=== PATIENT | male | born 1980 | race Caucasian/White ===

== ENCOUNTER → 2017-08-19 | Outpatient (CLI) | payer MEDICAID, SELFPAY | LOC: M OUTALCOH 14:30 | PROVIDERS: ATTEND Psychiatry & Neurology Psychiatry | DX: Z13.9 Encounter for screening, unspecified (principal); F10.20 Alcohol dependence, uncomplicated ==

== ENCOUNTER 2017-09-07 11:00 | Outpatient (RCR) | payer MEDICAID | END 2017-09-19 | LOC: M OUTALCOH 11:00 | DX: F10.20 Alcohol dependence, uncomplicated (principal); F17.200 Nicotine dependence, unspecified, uncomplicated ==

== ENCOUNTER 2017-09-22 14:21 | Outpatient (RCR) | payer SELFPAY | END 2017-10-20 | LOC: M OUTALCOH 14:21 | DX: F10.20 Alcohol dependence, uncomplicated (principal); F17.200 Nicotine dependence, unspecified, uncomplicated ==

== ENCOUNTER 2017-10-28 08:00 | Outpatient (RCR) | payer SELFPAY | END 2017-11-17 | LOC: M OUTALCOH 11-04 09:00 | DX: F10.20 Alcohol dependence, uncomplicated (principal); F17.200 Nicotine dependence, unspecified, uncomplicated ==

== ENCOUNTER → 2018-01-31 | Outpatient (CLI) | payer OTHER | LOC: M WUC 13:41 | DX: S96.001A Unspecified injury of muscle and tendon of long flexor muscle of toe at ankle and foot level, right foot, initial encounter (principal); X58.XXXA Exposure to other specified factors, initial encounter; Y92.89 Other specified places as the place of occurrence of the external cause | CPT/HCPCS: 73620 ==

== ENCOUNTER 2020-08-07 12:12 | Emergency (ER) | payer MEDICAID, SELFPAY ==
[~2020-08-07] VITALS: Ht 185.4 cm; Wt 70.5 kg
[2020-08-07 12:14] VITALS: BP 111/71
[2020-08-07] MEDS ORDERED: SERT-138 PO ×2 (12:27→12:42)
== END 2020-08-07 12:57 | disposition home or self-care (01) ==
LOC: M ED 12:12
DX: Z76.0 Encounter for issue of repeat prescription (principal); Z79.899 Other long term (current) drug therapy; Z88.0 Allergy status to penicillin; F17.210 Nicotine dependence, cigarettes, uncomplicated

== ENCOUNTER 2020-11-07 14:33 | Emergency (ER) | payer MEDICAID, OTHER ==
[~2020-11-07] VITALS: Ht 180.3 cm; Wt 62.4 kg
[2020-11-07 14:33] VITALS: BP 112/74
[~2020-11-07 14:33] MED LIST: SERT-138 PO
--- OUTSIDE RECORDS SUMMARY | 2020-11-07 14:39 | CCD ---
Author Author Ortega Longoria Organization Unknown Address [address] [address] Phone Care Team Providers Care Aviation Project Manager Name Role Phone Andrez Longoria PCP Allergies, Adverse Reactions, Alerts No Data in Section Problem List Concept Problem Description Status Start Date Created Date Resolv ed Date Snomed Code F41.9 Unspecified Anxiety Disorder Active 09/11/2020 F10.20 Alcohol Use Disorder, Severe Active 09/11/2020 F17.200 Tobacco Use Disorder, Severe Active 09/11/2020 Medications No Data in Section Social History Social History Element Description Concept Effective Date Smoking Status Unknown if ever smoked [id number] Immunizations No Data in Section Vital Signs No Data in Section Procedures Date Concept Id Description Targeted Site Concept Targeted Site Concept Type 09/11/2020 65164 Extended Individual Psychotherapy - 45 min CPT Patient has no history of implantable de vices Encounters Encounter Start Date End Date Encounter Type Description Diagnosis Di agnosis Desc Location Author First Name Author Last Name Npid Taxonomy Cod e Taxonomy Desc Phone Number Location Addr1 Location Addr2 Location [facility] Location [facility] Location [facility] [id number] 09/11/2020 09/11/2020 13091 Extended Individual Psych otherapy - 45 min F41.9 Anxiety Disorder, Unspecified [facility] Von Maguire [id number] Lumber Buyer [phone] [address] [place], [place] 1 [facility] [address] Plan of Treatment No Data in Section Lab Results No Data in Section Instructions No Data in Section Insurance Providers Insurance Id Policy Effective Date Policy Thru Date Company N ophelia [id number] 2020 MEDICAID
--- OUTSIDE RECORDS SUMMARY | 2020-11-07 14:39 | CCD ---
Author Author [facility] Organization [facility] Address Unknown Phone Unavailable Care Team Providers Care Engineering Technician Name Role Phone Gabriela Moralez MD Unavailable Unavailable Gabriela Moralez MD Unavailable Unavailable Gabriela Moralez MD Unavailable Unavailable Gabriela Moralez MD Unavailable Unavailable Gabriela Moralez MD Unavailable Unavailable Gabriela Moralez MD Unavailable Unavailable Gabriela Moralez MD Unavailable Unavailable Gabriela Moralez MD Unavailable Unavailable Gabriela Moralez MD Unavailable Unavailable Gabriela Moralez MD Unavailable Unavailable Gabriela Moralez MD Unavailable Unavailable Gabriela Moralez MD Unavailable Unavailable aGbriela Moralez MD Unavailable Unavailable Gabriela Moralez MD Unavailable Unavailable Gabriela Moralez MD Unavailable Unavailable Gabriela Moralez MD Unavailable Unavailable Gabriela Moralez MD Unavailable Unavailable Gabriela Moralez MD Unavailable Unavailable Gabriela Moralez MD Unavailable Unavailable Gabriela Moralez MD Unavailable Unavailable Gabriela Moralez MD Unavailable Unavailable Gabriela Moralez MD Unavailable Unavailable Gabriela Moralez MD Unavailable Unavailable Gabriela Moralez MD Unavailable Unavailable Gabriela Moralez MD Unavailable Unavailable Gabriela Moralez MD Unavailable Unavailable Gabriela Moralez MD Unavailable Unavailable Gabriela Moralez MD Unavailable Unavailable Gabriela Moralez MD Unavailable Unavailable Gabriela Moralez MD Unavailable Unavailable Gabriela Moralez MD Unavailable Unavailable Gabriela Moralez MD Unavailable Unavailable Gabriela Moralez MD Unavailable Unavailable Gabriela Moralez MD Unavailable Unavailable Gabriela Moralez MD Unavailable Unavailable Gabriela Moralez MD Unavailable Unavailable Gabriela Moralez MD Unavailable Unavailable Gabriela Moralez MD Unavailable Unavailable Gabriela Moralez MD Unavailable Unavailable Gabriela Moralez MD Unavailable Unavailable Gabriela Moralez MD Unavailable Unavailable Gabriela Moralez MD Unavailable Unavailable Gabriela Moralez MD Unavailable Unavailable Gabriela Moralez MD Unavailable Unavailable Gabriela Moralez MD Unavailable Unavailable Gabriela Moralez MD Unavailable Unavailable Gabriela Moralez MD Unavailable Unavailable Gabriela Moralez MD Unavailable Unavailable Gabriela Moralez MD Unavailable Unavailable Gabriela Moralez MD Unavailable Unavailable Gabriela Moralez MD Unavailable Unavailable Gabriela Moralez MD Unavailable Unavailable Gabriela Moralez MD Unavailable Unavailable Gabriela Moralez MD Unavailable Unavailable Gabriela Moralez MD Unavailable Unavailable Gabriela Moralez MD Unavailable Unavailable Gabriela Moralez MD Unavailable Unavailable Gabriela Moralez MD Unavailable Unavailable Gabriela Moralez MD Unavailable Unavailable Gabriela Moralez MD Unavailable Unavailable Gabriela Moralez MD Unavailable Unavailable Gabriela Moralez MD Unavailable Unavailable Gabriela Moralez MD Unavailable Unavailable Gabriela Moralez MD Unavailable Unavailable Gabriela Moralez MD Unavailable Unavailable Gabriela Moralez MD Unavailable Unavailable Gabriela Moralez MD Unavailable Unavailable Gabriela Moralez MD Unavailable Unavailable Gabriela Moralez MD Unavailable Unavailable Gabriela Moralez MD Unavailable Unavailable Gabriela Moralez MD Unavailable Unavailable Gabriela Moralez MD Unavailable Unavailable Gabriela Moralez MD Unavailable Unavailable Gabriela Moralez MD Unavailable Unavailable Gabriela Moralez MD Unavailable Unavailable Gabriela Moralez MD Unavailable Unavailable Gabriela Moralez MD Unavailable Unavailable Gabriela Moralez MD Unavailable Unavailable Gabriela Moralez MD Unavailable Unavailable Gabriela Moralez MD Unavailable Unavailable Gabriela Moralez MD Unavailable Unavailable Gabriela Moralez MD Unavailable Unavailable Gabriela Moralez MD Unavailable Unavailable Gabriela Moralez MD Unavailable Unavailable Gabriela Moralez MD Unavailable Unavailable Gabriela Moralez MD Unavailable Unavailable Gabriela Moralez MD Unavailable Unavailable Gabriela Moralez MD Unavailable Unavailable Gabriela Moralez MD Unavailable Unavailable MadiArielle Unavailable VonAndrez Unavailable Von Andrez Unavailable Re-disclosure Warning The records that you are about to access may contain information from federally-assisted alcohol or drug abuse programs. If such information is present, then the following federally mandated warning applies: This information has been disclosed to you from records protected by federal confidentiality rules (42 CFR part 2). The federal rules prohibit you from making any further disclosure of this information unless further disclosure is expressly permitted by the written consent of the person to whom it pertains or as otherwise permitted by 42 CFR part 2. A general authorization for the release of medical or other information is NOT sufficient for this purpose. The Federal rules restrict any use of the information to criminally investigate or prosecute any alcohol or drug abuse patient.The records that you are about to access may contain highly sensitive health information, the redisclosure of which is protected by Article 27-F of the [facility] Public Health law. If you continue you may have access to information: Regarding HIV / AIDS; Provided by facilities licensed or operated by the [facility] Office of Mental Health; or Provided by the [facility] Office for People With Developmental Disabilities. If such information is present, then the following [facility] mandated warning applies: This information has been disclosed to you from confidential records which are protected by state law. State law prohibits you from making any further disclosure of this information without the specific written consent of the person to whom it pertains, or as otherwise permitted by law. Any unauthorized further disclosure in violation of state law may result in a fine or residential sentence or both. A general authorization for the release of medical or other information is NOT sufficient authorization for further disc losure. Encounters Encounter Providers Location Date Indications Data Source(s ) Extended Individual Psychotherapy - 45 min Attender: James Longoria [facility] Correction 10/23/2020 02:00:00 AM EST - 10/23/2020 02:00:00 AM EST [facility] ([facility]) Attender: Andrez Longoria 10/23/2020 12:00:00 AM EST [facility] ([facility]) Jabari Moralez MD: [address] [place] [address], Ph. Attender: Jabari Moralez MD NE - [facility] Medical 10/15/2020 12:00:00 AM EST [facility] ([facility]) Attender: Andrez Longoria 10/11/2020 12:00:00 AM EST [facility] ([facility]) Extended Individual Psychotherapy - 45 min Attender: James sanders [facility] 10/10/2020 11:00:00 AM EST - 10/10/2020 11:00:00 AM EST [facility] ([facility]) Extended Individual Psychotherapy - 45 min Attender: James sanders [facility] 09/11/2020 08:00:00 AM EST - 09/11/2020 08:00:00 AM EST [facility] ([facility]) Attender: Andrez Longoria 09/11/2020 12:00:00 AM EST [facility] ([facility]) Psychiatric Diagnostic Evaluation (Non-Medical) Attender: Stevie Longoria [facility] 08/28/2020 01:00:00 AM EST - 08/28/2020 01:00:00 AM EST [facility] ([facility]) Attender: Andrez Longoria 08/28/2020 12:00:00 AM EST [facility] ([facility]) Psychiatric Diagnostic Evaluation (Non-Medical) Attender: Stevie Longoria [facility] 07/29/2020 08:00:00 AM EST - 07/29/2020 08:00:00 AM EST [facility] ([facility]) Attender: Andrez Longoria 07/29/2020 12:00:00 AM EST [facility] ([facility]) Brief Individual Psychotherapy - 30 min Attender: Arielle ha [facility] 07/19/2020 09:15:00 AM EDT - 07/19/2020 09:15:00 AM EDT [facility] ([facility]) Attender: Arielle Barraza 07/19/2020 12:00:00 AM EDT [facility] ([facility]) Insurance Providers Payer name Policy type / Coverage type Policy ID Covered republican ID Covered republican's relationship to contreras Policy Contreras Plan Information [place] [id number] SP [id number] SELF PAY ONLY [id number] SP [id number] SON [place]/WOD [id number] Self [id number] [facility] DEPT [id number] SP [id number] [facility] ADITYA [id number] SP [id number] UNHC COMMUNITY PLAN MCDHMO [id number] SP [id number] UNHC AMERICHOICE XIX -HMO [id number] 18 [id number] Managed Care - Community Plan [facility] P [id number] S [id number] Medicaid S [id number] S [id number] UNHC COMMUNITY PLAN XIX [id number] [id number] [facility]) O [id number] S [id number] BLUE CROSS BLUE SHIELD -CLINIC [id number] [employer]OSS BLUE SHIELD MCR -O/P [id number] 18 [id number] MEDICAID - CLINIC [id number] 18 AM [id number] MEDICAID-PHYSICIAN [id number] 18 A [id number] MEDICAID - CLINIC [id number] 18 AM [id number] UNHC XIX HMO-PHY [id number] [employer] [place] [place] PLAN [id number] SP [id number] MEDICAID - O/P EMERGENCY ROOM [id number] 18 [id number] [employer] BCBS P [id number] S [id number] BLUE [employer] [place] PLAN [id number] SP [id number] MEDICAID [id number] SP [id number] MEDICAID-O/P [id number] 18 [id number] N [id number] Problems, Conditions, and Diagnoses Code Display Name Description Problem Type Effective Dates Data Source(s) F17.200 Nicotine dependence, unspecified, uncomp licated Tobacco Use Disorder, Severe Condition 10/23/2020 12:00:00 AM EST [facility] ([facility]) F10.20 Alcohol dependence, uncomplicated Alcohol Use Disorder , Severe Condition 10/23/2020 12:00:00 AM EST [facility] ([facility]) F41.9 Anxiety disorder, unspecified Unspecified Anxiety Diso rder Condition 10/23/2020 12:00:00 AM EST [facility] ([facility]) [id number] Tobacco user Tobacco User Problem 10/15/2020 12:00:00 A M EST [facility] ([facility]) [id number] Anxiety Anxiety Problem 10/15/2020 12:00:00 AM ES T [facility] ([facility]) Surgeries/Procedures Procedure Description Date Indications Data Source(s) Extended Individual Psychotherapy - 45 min 10/23/2020 12:00:00 AM EST - 10/23/2020 12:00:00 AM EST [facility] ([facility]) Extended Individual Psychotherapy - 45 min 12:00:00 AM EST [facility] ([facility]) Extended Individual Psychotherapy - 45 min 10/11/2020 12:00:00 AM EST - 10/11/2020 12:00:00 AM EST [facility] ([facility]) Extended Individual Psychotherapy - 45 min 12:00:00 AM EST [facility] ([facility]) Extended Individual Psychotherapy - 45 min 09/11/2020 12:00:00 AM EST - 09/11/2020 12:00:00 AM EST [facility] ([facility]) Extended Individual Psychotherapy - 45 min 0 12:00:00 AM EST [facility] ([facility]) Psychiatric Diagnostic Evaluation (Non-Medical) 08/28/2020 12:00:00 AM EST - 08/28/2020 12:00:00 AM EST [facility] ([facility]) Psychiatric Diagnostic Evaluation (Non-Medical) 2019 12:00:00 AM EST [facility] ([facility]) Psychiatric Diagnostic Evaluation (Non-Medical) 07/29/2020 12:00:00 AM EST - 07/29/2020 12:00:00 AM EST [facility] ([facility]) Psychiatric Diagnostic Evaluation (Non-Medical) 2019 12:00:00 AM EST [facility] ([facility]) Brief Individual Psychotherapy - 30 min 07/19/2020 12:00:00 AM EDT - 07/19/2020 12:00:00 AM EDT [facility] ([facility]) Brief Individual Psychotherapy - 30 min 07/19/2020 12: 00:00 AM EDT [facility] ([facility]) Social History Code Duration Value Status Description Data Source(s ) Smoking 10/23/2020 12:00:00 AM EST Unknown if ever smoked comp leted Unknown if ever smoked [facility] ([facility]) Smoking 10/11/2020 12:00:00 AM EST Unknown if ever smoked comp leted Unknown if ever smoked [facility] ([facility]) Smoking 09/11/2020 12:00:00 AM EST Unknown if ever smoked comp leted Unknown if ever smoked [facility] ([facility]) Smoking 08/28/2020 12:00:00 AM EST Unknown if ever smoked comp leted Unknown if ever smoked [facility] ([facility]) Smoking 07/29/2020 12:00:00 AM EST Unknown if ever smoked comp leted Unknown if ever smoked [facility] ([facility]) Smoking 07/19/2020 12:00:00 AM EDT Unknown if ever smoked comp leted Unknown if ever smoked [facility] ([facility]) Vital Signs ID Date Data Source UNK Name Value Range Interpretation Code Description Data Source(s) Body weight 2336 [oz_av] 2336 [oz_av] [facility] ([facility]) Systolic blood pressure 98 mm[Hg] 98 mm[Hg] A THENA ([facility]) Diastolic blood pressure 73 mm[Hg] 73 mm[Hg] [facility] ([facility])
--- OUTSIDE RECORDS SUMMARY | 2020-11-07 14:39 | CCD ---
Author Organization Unknown Address [address] [place] [address] Phone [phone] Care Team Providers Care Enamel Applier Name Role Phone Jabari Moralez Unavailable Unavailable Allergies Code Code System Name Reaction Severity Status Onset Penicillin Active 07/01/2016 Medications Name Status Start Date Stop Date clonazepam 1 mg tablet Active Not avail able gabapentin 300 mg capsule Active Not av ailable sertraline 100 mg tablet Take 1 tablet every day by oral route. Active Not available Problems Name Status Onset Date Source Asthma Active 07/01/2016 History Anxiety Active 10/15/2020 Tobacco User Active 10/15/2020 Procedures Date Name Performed by Appendectomy Information not avai lable Results Lab Results None recorded. Past Encounters 10/15/2020 Anxiety; Tobacco User Jabari Moralez MD: [address] [place] [address], Ph. Social History Tobacco Smoking Status Heavy Tobacco Smoker (1 PPD) Vaccine List None recorded. Plan of Care Reminders Provider Appointments None recorded. Lab None recorded. Referral None recorded. Procedures None recorded. Surgeries None recorded. Imaging None recorded. Vitals Weight Blood Pressure 146 lbs 98/73 mm[Hg]
--- OUTSIDE RECORDS SUMMARY | 2020-11-07 14:39 | CCD ---
Author Author Ortega Longoria Organization Unknown Address [address] [address] Phone Care Team Providers Care Orange Picker Machine Operator Name Role Phone VonJamesto PCP Allergies, Adverse Reactions, Alerts No Data in Section Problem List Concept Problem Description Status Start Date Created Date Resolv ed Date Snomed Code F41.9 Unspecified Anxiety Disorder Active 10/23/2020 F10.20 Alcohol Use Disorder, Severe Active 10/23/2020 F17.200 Tobacco Use Disorder, Severe Active 10/23/2020 Medications No Data in Section Social History Social History Element Description Concept Effective Date Smoking Status Unknown if ever smoked [id number] Immunizations No Data in Section Vital Signs No Data in Section Procedures Date Concept Id Description Targeted Site Concept Targeted Site Concept Type 10/23/2020 69369 Extended Individual Psychotherapy - 45 min CPT Patient has no history of implantable de vices Encounters Encounter Start Date End Date Encounter Type Description Diagnosis Di agnosis Desc Location Author First Name Author Last Name Npid Taxonomy Cod e Taxonomy Desc Phone Number Location Addr1 Location Addr2 Location [facility] Location [facility] Location [facility] 905246 10/23/2020 10/23/2020 88162 Extended Individual Psych otherapy - 45 min F41.[address], [address] [facility] Von Maguire [phone] [id number] Detention Attendant [phone] [address] [address] Plan of Treatment No Data in Section Lab Results No Data in Section Instructions No Data in Section Insurance Providers Insurance Id Policy Effective Date Policy Thru Date Company N ophelia [id number] 2020 MEDICAID
--- OUTSIDE RECORDS SUMMARY | 2020-11-07 14:39 | CCD ---
Author Author Ortega Longoria Organization Unknown Address [address] [address] Phone Care Team Providers Care C.O.D. Clerk Name Role Phone Andrez Longoria PCP Allergies, Adverse Reactions, Alerts No Data in Section Problem List Concept Problem Description Status Start Date Created Date Resolv ed Date Snomed Code F41.9 Unspecified Anxiety Disorder Active 08/29/2020 F10.20 Alcohol Use Disorder, Severe Active 08/29/2020 F17.200 Tobacco Use Disorder, Severe Active 08/29/2020 Medications No Data in Section Social History Social History Element Description Concept Effective Date Smoking Status Unknown if ever smoked [id number] Immunizations No Data in Section Vital Signs No Data in Section Procedures Date Concept Id Description Targeted Site Concept Targeted Site Concept Type 08/28/2020 10912 Psychiatric Diagnostic Evaluation (Non-Medical) CPT Patient has no history of implantable de vices Encounters Encounter Start Date End Date Encounter Type Description Diagnosis Di agnosis Desc Location Author First Name Author Last Name Npid Taxonomy Cod e Taxonomy Desc Phone Number Location Addr1 Location Addr2 Location [facility] Location [facility] Location [facility] [id number] 08/28/2020 08/28/2020 27858 Psychiatric Brie gnostic Evaluation (Non-Medical) F41.9 Anxiety Disorder, Unspecified [facility] Vno Maguire [id number] Medical Reimbursement Manager [phone] [address] [place], [place] 1 [facility] [address] Plan of Treatment No Data in Section Lab Results No Data in Section Instructions No Data in Section Insurance Providers Insurance Id Policy Effective Date Policy Thru Date Company N ophelia [id number] 2020 MEDICAID
--- OUTSIDE RECORDS SUMMARY | 2020-11-07 14:39 | CCD ---
Author Author Ortega Longoria Organization Unknown Address [address] [address] Phone Care Team Providers Care Modeler Name Role Phone VonJamesto PCP Allergies, Adverse Reactions, Alerts No Data in Section Problem List Concept Problem Description Status Start Date Created Date Resolv ed Date Snomed Code F41.9 Unspecified Anxiety Disorder Active 10/11/2020 F10.20 Alcohol Use Disorder, Severe Active 10/11/2020 F17.200 Tobacco Use Disorder, Severe Active 10/11/2020 Medications No Data in Section Social History Social History Element Description Concept Effective Date Smoking Status Unknown if ever smoked [id number] Immunizations No Data in Section Vital Signs No Data in Section Procedures Date Concept Id Description Targeted Site Concept Targeted Site Concept Type 10/10/2020 75935 Extended Individual Psychotherapy - 45 min CPT Patient has no history of implantable de vices Encounters Encounter Start Date End Date Encounter Type Description Diagnosis Di agnosis Desc Location Author First Name Author Last Name Npid Taxonomy Cod e Taxonomy Desc Phone Number Location Addr1 Location Addr2 Location [facility] Location [facility] Location [facility] [id number] 10/10/2020 10/10/2020 67432 Extended Individual Psych otherapy - 45 min F41.9 Anxiety Disorder, Unspecified [facility] Von Maguire [phone] [id number] Reference Librarian [id number] [address] [address] Plan of Treatment No Data in Section Lab Results No Data in Section Instructions No Data in Section Insurance Providers Insurance Id Policy Effective Date Policy Thru Date Company N ophelia [id number] 2020 MEDICAID
[2020-11-07] MEDS ORDERED: CLON1TAB8 (14:40)
[2020-11-07] MEDS ORDERED: GABA-282 (14:40)
--- OUTSIDE RECORDS SUMMARY | 2020-11-07 15:01 | CCD ---
Author Author [facility] Organization [facility] Address Unknown Phone Unavailable Care Team Providers Care Hair Dresser Name Role Phone Gabriela Moralez MD Unavailable [...] Unavailable Unavailable Gabriela Moralez MD Unavailable Unavailable Gbariela Moralez MD Unavailable Unavailable Gabriela Moralez MD [...] is protected by Article 27-F of the [facility] Public Health law. If you continue you may have access to information: Regarding HIV / AIDS; Provided by facilities licensed or operated by the [facility] Office of Mental Health; or Provided by the [facility] Office for People With Developmental Disabilities. If such information is present, then the following [facility] mandated warning applies: This information has [...] law may result in a fine or senior living sentence or both. A general authorization for the release of medical or other information is NOT sufficient authorization for further disc losure. Encounters Encounter Providers Location Date Indications Data Source(s ) Extended Individual Psychotherapy - 45 min Attender: James Longoria [facility] 10/23/2020 02:00:00 AM EST - 10/23/2020 02:00:00 AM EST [facility] ([facility]) Attender: Andrez Longoria 10/23/2020 12:00:00 AM EST [facility] ([facility]) Jabari Moralez MD: [address] [place] [address], Ph. Attender: Jabari Moralez MD [place] - [facility] Medical 10/15/2020 12:00:00 AM EST [facility] ([facility]) Attender: Andrez Longoria 10/11/2020 12:00:00 AM EST [facility] ([facility]) Extended Individual Psychotherapy - 45 min Attender: James sanders [facility] 10/10/2020 11:00:00 AM EST - 10/10/2020 11:00:00 AM EST [facility] ([facility]) Extended Individual Psychotherapy - 45 min Attender: James sanders [facility] 09/11/2020 08:00:00 AM EST - 09/11/2020 08:00:00 AM EST [facility] ([facility]) Attender: Andrez Longoria 09/11/2020 12:00:00 AM EST [facility] ([facility]) Psychiatric Diagnostic Evaluation (Non-Medical) Attender: Stevie Longoria [facility] 08/28/2020 01:00:00 AM EST - 08/28/2020 01:00:00 AM EST [facility] ([facility]) Attender: Andrez Longoria 08/28/2020 12:00:00 AM EST [facility] ([facility]) Psychiatric Diagnostic Evaluation (Non-Medical) Attender: Stevie Longoria [facility] 07/29/2020 08:00:00 AM EST - 07/29/2020 08:00:00 AM EST [facility] ([facility]) Attender: Andrez Longoria 07/29/2020 12:00:00 AM EST [facility] ([facility]) Brief Individual Psychotherapy - 30 min Attender: Arielle ha [facility] 07/19/2020 09:15:00 AM EDT - 07/19/2020 09:15:00 AM EDT [facility] ([facility]) Attender: Arielle Barraza 07/19/2020 12:00:00 AM EDT [facility] ([facility]) Insurance Providers Payer name Policy type / Coverage type Policy ID Covered democrat ID Covered democrat's relationship to contrears Policy Contreras Plan Information [employer] COMMUNITY PLAN MCDHMO [id number] SP [id number] [place] [id number] SP [id number] SELF PAY ONLY [id number] SP [id number] SON [place]/WOD [id number] Self [id number] [facility] DEPT [id number] SP [id number] [facility] [id number] SP [id number] [employer] COMMUNITY PLAN MCDHMO [id number] SP [id number] UNHC AMERICHOICE XIX -HMO [id number] 18 [id number] Managed Care - Community Plan [facility] P [id number] S [id number] Medicaid S [id number] S [id number] [employer] COMMUNITY PLAN XIX [id number] 18 [id number] [facility]) O [id number] S [id number] [employer] BLUE SHIELD -CLINIC [id number] [employer] BLUE [employer]IELD MCR -O/P [id number] MEDICAID - CLINIC [id number] 18 AM [id number] MEDICAID-PHYSICIAN [id number] 18 A [id number] MEDICAID - CLINIC [id number] 18 AM [id number] UNHC XIX HMO-PHY [id number] 18 [id number] [employer] [place] [employer] [id number] SP [id number] MEDICAID - O/P EMERGENCY ROOM [id number] 18 [id number] [place] BCBS P [id number] S [id number] [employer] [place] [place] [id number] SP [id number] MEDICAID [id number] SP [id number] MEDICAID-O/P [id number] 18 [id number] Problems, Conditions, and Diagnoses Code Display Name Description Problem Type Effective Dates Data Source(s) F17.200 Nicotine dependence, unspecified, uncomp licated Tobacco Use Disorder, Severe Condition 10/23/2020 12:00:00 AM EST [facility] ([facility]) F10.20 Alcohol dependence, uncomplicated Alcohol Use Disorder , Severe Condition 10/23/2020 12:00:00 AM EST [facility] ([facility]) F41.9 Anxiety disorder, unspecified Unspecified Anxiety Diso rder Condition 10/23/2020 12:00:00 AM EST [facility] ([facility]) [id number] Tobacco user Tobacco User Problem 10/15/2020 12:00:00 A M EST [facility] ([facility]) [id number] Anxiety Anxiety Problem 10/15/2020 12:00:00 AM ES T [facility] ([facility]) Surgeries/Procedures Procedure Description Date Indications Data Source(s) Extended Individual Psychotherapy - 45 min 10/23/2020 12:00:00 AM EST - 10/23/2020 12:00:00 AM EST [facility] ([facility]) Extended Individual Psychotherapy - 45 min 1 12:00:00 AM EST [facility] ([facility]) Extended Individual Psychotherapy - 45 min 10/11/2020 12:00:00 AM EST - 10/11/2020 12:00:00 AM EST [facility] ([facility]) Extended Individual Psychotherapy - 45 min 1 12:00:00 AM EST [facility] ([facility]) Extended Individual Psychotherapy - 45 min 09/11/2020 12:00:00 AM EST - 09/11/2020 12:00:00 AM EST [facility] ([facility]) Extended Individual Psychotherapy - 45 min 0 12:00:00 AM EST [facility] ([facility]) Psychiatric Diagnostic Evaluation (Non-Medical) 08/28/2020 12:00:00 AM EST - 08/28/2020 12:00:00 AM EST [facility] ([facility]) Psychiatric Diagnostic Evaluation (Non-Medical) 2019 12:00:00 AM EST [facility] ([facility]) Psychiatric Diagnostic Evaluation (Non-Medical) 07/29/2020 12:00:00 AM EST - 07/29/2020 12:00:00 AM EST [facility] ([facility]) Psychiatric Diagnostic Evaluation (Non-Medical) 2019 12:00:00 AM EST [facility] ([facility]) Brief Individual Psychotherapy - 30 min 07/19/2020 12:00:00 AM EDT - 07/19/2020 12:00:00 AM EDT [facility] ([facility]) Brief Individual Psychotherapy - 30 min 07/19/2020 12: 00:00 AM EDT [facility] ([facility]) Social History Code Duration Value Status Description Data Source(s ) Smoking 10/23/2020 12:00:00 AM EST Unknown if ever smoked comp leted Unknown if ever smoked [facility] ([facility]) Smoking 10/11/2020 12:00:00 AM EST Unknown if ever smoked comp leted Unknown if ever smoked [facility] ([facility]) Smoking 09/11/2020 12:00:00 AM EST Unknown if ever smoked comp leted Unknown if ever smoked [facility] ([facility]) Smoking 08/28/2020 12:00:00 AM EST Unknown if ever smoked comp leted Unknown if ever smoked [facility] ([facility]) Smoking 07/29/2020 12:00:00 AM EST Unknown if ever smoked comp leted Unknown if ever smoked [facility] ([facility]) Smoking 07/19/2020 12:00:00 AM EDT Unknown if ever smoked comp leted Unknown if ever smoked [facility] ([facility]) Vital Signs ID Date Data Source UNK Name Value Range Interpretation Code Description Data Source(s) Body weight 2336 [oz_av] 2336 [oz_av] [facility] ([facility]) Systolic blood pressure 98 mm[Hg] 98 mm[Hg] A [facility] ([facility]) Diastolic blood pressure 73 mm[Hg] 73 mm[Hg] [facility] ([facility])
[2020-11-07] MEDS ORDERED: GABA-282 PO (15:04)
[2020-11-07] MEDS ORDERED: ZOLO100T PO (15:04)
[2020-11-07] MEDS ORDERED: KLON1TAB PO (15:04)
== END 2020-11-07 15:17 | disposition home or self-care (01) ==
LOC: M ED 14:33
DX: Z76.0 Encounter for issue of repeat prescription (principal); F31.9 Bipolar disorder, unspecified; F33.9 Major depressive disorder, recurrent, unspecified; F41.9 Anxiety disorder, unspecified; Z88.0 Allergy status to penicillin; Z79.899 Other long term (current) drug therapy

== ENCOUNTER → 2021-02-06 | Outpatient (REF) | payer OTHER ==
[~2021-02-06] MED LIST changes: +CLON1TAB8; +GABA-282; +GABA-282 PO; +KLON1TAB PO; +ZOLO100T PO
== END ==
LOC: M LAB REF 15:42
PROVIDERS: ATTEND Surgery
DX: U07.1 COVID-19 (principal)

== ENCOUNTER → 2022-04-08 | Outpatient (CLI) | payer MEDICAID | LOC: M OUTALCOH 07:29 | PROVIDERS: ATTEND Psychiatry & Neurology Psychiatry | DX: Z13.39 Encounter for screening examination for other mental health and behavioral disorders (principal) ==